=== PATIENT | female | born 1975 | race Caucasian/White ===

== ENCOUNTER 2019-09-27 01:13 | Outpatient (CLI) | payer OTHER, SELFPAY ==
[2019-09-27 20:03] LABS: SARS-CoV-2 RNA PCR Negative
== END 2019-09-27 01:14 | disposition home or self-care (01) ==
LOC: ANHCOVIDDT 01:15
PROVIDERS: PCP Emergency Medicine; Visit Provider Obstetrics & Gynecology
DX: Z01.818 Encounter for other preprocedural examination (principal); Z11.59 Encounter for screening for other viral diseases
CPT/HCPCS: 87635; C9803; U0003

== ENCOUNTER 2019-09-29 02:25 | Day surgery (SDC) | payer OTHER, SELFPAY ==
[2019-09-23 10:12] VITALS: BMI 39.0
--- NOTE | 2019-09-28 13:13 | WPDANESEPPF ---
Anes - Initial Pre Proc Eval Procedure: Operation Date: 09/29/19 07:30 Proposed Procedures p Hysteroscopy With Endometrial Ablation - Emilio Denise MD Date/Time: 09/28/19 13:13 Surgeon: Emilio Denise MD Pre Op Diagnosis: Heavy Bleeding, Menorrhagia Patient Data Age: 43 Gender: F Height: 5 ft Weight: 90.72 kg Allergies Allergy/AdvReac Type Severity Reaction Status Date / Time No Known Allergies Allergy Verified 09/23/19 10:12 Home Medications Medication Instructions Recorded Confirmed Type No Home Medications 09/23/19 09/23/19 History Patient hx anesthesia problems: none Family hx anesthesia problems: none PMFSH Past Medical History Medical History (Updated 09/28/19 @ 13:11 by Daniel Velazquez MD) Anxiety Morbid obesity Family History Family History (Updated 12/30/18 @ 14:10 by DOCTOR UNKNOWN) Father Cerebrovascular accident Mother Cerebrovascular accident Social History Social History Smoking packs per day: 7 Smoking cigarettes per day: 140.0 Years smoked: 25 Smoking pack-years: 175.00 Smoking status: Current some day smoker Tobacco type: cigarettes Alcohol intake: current Spiritual care concerns: No Anes - Eval Final PreProcedure Day of Procedure 09/28/19 13:13 Patient weight: morbidly obese Heart: regular rate and rhythm Lungs: clear to auscultation Airway: Mallampati scale class II Neurological: alert and oriented Last oral intake: >/= 8 hours ASA classification: III Emergent: no Anesthetic plan: proceed Anesthesia type and monitoring: general GIVS and standard monitoring Informed Consent: The patient's anesthetic plan and its attendant risks and benefits were discussed with the patient/family/POA. Questions were solicited and answers provided to the satisfaction of the patient/family/POA.
[2019-09-29] VITALS (7 sets, daily range): BP systolic 78–141; BP diastolic 51–92; PULSE 58–88; RESP 16–20; TEMP 37.7; O2SAT 91–99
[2019-09-29] MEDS: LACTATED RINGERS 1,000 ML 30 ML IV CONT (07:15)
--- NOTE | 2019-09-29 07:28 | WPDHPUPDATE1 ---
History and Physical Update Update Date/Time: 09/29/19 07:28 History and Physical has been reviewed, including an updated exam of the patient. There are NO changes in the patient's condition. Risks, benefits, and alternatives have been discussed and questions answered. Patient agrees to proceed with procedure.
[2019-09-29] MEDS: ACETAMINOPHEN 500 MG TABLET 1000 MG PO (07:30)
[2019-09-29] MEDS: KETOROLAC 30 MG/ML VIAL (*BKC) 15 MG IV PUSH (07:57)
--- NOTE | 2019-09-29 08:00 | P.OP_ITS ---
Procedure Note - Detailed Date of procedure: 09/29/19 Pre-op diagnosis: Heavy Bleeding, Menorrhagia Post-op diagnosis: same Procedure performed: Hysteroscopy D&C, endometrial ablation Description of procedure: The patient was taken the operating room. She has prepped and draped in the dorsal lithotomy position. Speculum was placed the vagina. The cervix grasped with a tenaculum. The cervix was injected at 3 and 9:00 a.m. with 1% lidocaine. The hysteroscope was inserted the intrauterine cavity through the cervix. The above findings were noted. The hysteroscope and uterine sound were used to calculate endometrial cavity length. The endometrial cavity length was entered into the device hand piece. The endometrial cavity was curettaged thoroughly with a medium-size curette. All surfaces were curettaged. The sample was sent to pathology. The device was placed in the intrauterine cavity and the array was expanded. The balloon cuff was inflated. The power and safety checks were initiated. Never completed the array was c ollapsed and the balloon cuff was collapsed. The device was withdrawn. The hysteroscope was inserted back into the intrauterine cavity and well desiccated endometrial cavity was observed. The speculum was removed. The tenaculum was removed. The patient tolerated procedure well. She is take covering stable condition. Anesthesia: MAC Surgeon: Emilio Denise MD Estimated blood loss (mL): 15 Drains: No Packing: No Pathology: yes Complications: No immediate complications Condition: stable Disposition: PACU Findings: Normal appearing vulva vagina and cervix., normal-appearing intrauterine cavity.
--- NOTE | 2019-09-29 08:50 | SUR.PHASEII ---
09/29/19 0841- Patient's blood pressure dropped to 78/51. Reports feeling dizzy. HOB lowered. IVF wide open. B/P improved within minutes. Oxygen applied at 2L per nasal cannula.
--- NOTE | 2019-09-29 09:01 | SUR.PHASEII ---
0900- patient looking much improved. more awake. skin pink, warm and dry. b/p stable. hob elevated. ivf continue. will continue to monitor.
--- NOTE | 2019-09-29 09:28 | SUR.PHASEII ---
0925 pt doing better, more clearer neurological, bp stable, pt on room air
== END 2019-09-29 09:55 | disposition home or self-care (01) ==
PROVIDERS: PCP Emergency Medicine; Visit Provider Obstetrics & Gynecology
PROC: 0U5B8ZZ Destruction of Endometrium, Via Natural or Artificial Opening Endoscopic (ICD-10-PCS; CPT 58563; principal; 2019-09-29 07:30)
DX: N92.0 Excessive and frequent menstruation with regular cycle (principal); E66.01 Morbid (severe) obesity due to excess calories; Z68.39 Body mass index [BMI] 39.0-39.9, adult; F17.210 Nicotine dependence, cigarettes, uncomplicated
CPT/HCPCS: 58563; A9270; J1100; J1885; J2250; J2405; J2704; J3010; J7030; J7120

== ENCOUNTER 2019-09-29 14:34 | Emergency (ER) | payer OTHER, SELFPAY ==
--- NOTE | ~2019-09-29 | XR_ITS ---
EXAMINATION: XR chest 1V portable DATE: 09/29/2019 14:59 INDICATION: Hemoptysis. TECHNIQUE: A single frontal view of the chest was obtained on 2 radiographs. COMPARISON: CT abdomen and pelvis 09/26/2015 FINDINGS: The chest demonstrates clear lungs without pneumonia, pleural effusion, or pneumothorax. Th e heart size is normal. IMPRESSION: 1. No acute cardiopulmonary disease. Reviewed, dictated and finalized at location A.
[2019-09-29 14:38] VITALS: BP 147/86; PULSE 97; RESP 18; TEMP 36.4; O2SAT 99
[2019-09-29 14:59] LABS: Basophils Percent Auto 0.3 % (0.2-1.2); Eosinophils Percent Auto 0.1 % (0-4.4); Hematocrit 40.5 % (37.0-47.0); Hemoglobin 13.3 g/dL (12.0-15.0); Immature Granulocyte Absolute 0.04 K/mm3 (0.00-0.031); Immature Granulocyte Percent A 0.4 % (0-0.5); Lymphocytes Percent Auto 11.5 % (18.3-44.2); Mean Corpuscular HGB Conc 32.8 g/dl (32-36); Mean Corpuscular Hemoglobin 27.5 pg (26-34); Mean Corpuscular Volume 83.7 fl (80-100); Mean Platelet Volume 11.4 fl (7.4-10.4); Monocytes Absolute Auto 0.2 K/mm3 (0.1-0.6); Monocytes Percent Auto 1.4 % (2.6-8.5); Neutrophils Percent Auto 86.3 % (45.5-73.1); Platelet Count Result 311 k/mm3 (150-375); Red Blood Count 4.84 M/mm3 (4.2-5.4); Red Cell Distribution Width 14.6 % (11.5-14.5); White Blood Count 10.4 K/mm3 (4.5-10.0)
[2019-09-29 15:28] LABS: Alanine Aminotransferase 30 U/L (4-35); Albumin Level 4.5 g/dL (3.5-5.1); Alkaline Phosphatase 61 U/L (38-126); Aspartate Amino Transferase 26 U/L (14-36); Bilirubin,Total 0.4 mg/dL (0.2-1.3); Blood Urea Nitrogen 16 mg/dL (7-17); Calcium 8.9 mg/dL (8.4-10.2); Carbon Dioxide 23 mmol/L (22-30); Chloride 103 mmol/L (98-107); Estimated CRCL calculation 103 ml/min; Estimated Glomerular Filt Rate > 60; Glucose 136 mg/dL (65-105); Potassium 4.6 mmol/L (3.4-5.0); Sodium 138 mmol/L (137-145)
[2019-09-29] MEDS: SODIUM CHLORIDE 0.9% IV 1,000 ML 999 ML IV CONT (15:41)
--- NOTE | 2019-09-29 15:41 | ED.GENADULT ---
HPI - General Adult General Chief complaint: Unspecified Stated complaint: coughing up blood post surgery this morning Time Seen by Provider: 09/29/19 15:08 Source: patient Mode of arrival: ambulatory Limitations: no limitations History of Present Illness HPI narrative: This is a 43-year-old female that presents the emergency department for hematemesis this morning. Reports she had an uterine ablation this morning. Reports she got home and slept for an hour. Reports when she woke up she vomited and saw bright red blood in it. Reports since she had a couple more episodes of vomiting small amounts of bright red blood. Denies fever, chest pain, shortness of breath, or abdominal pain. Related Data Home Medications Medication Instructions Recorded Confirmed No Home Medications 09/29/19 09/29/19 Allergies Allergy/AdvReac Type Severity Reaction Status Date / Time No Known Allergies Allergy Verified 09/29/19 08:02 Review of Systems Review of Systems: Narrative: CONSTITUTIONAL: Denies fever CARDIOVASCULAR: Denies chest pain RESPIRATORY: Denies dyspnea. GASTROINTESTINAL: Reports nausea and vomiting. Denies abdominal pain All systems reviewed & are unremarkable except as noted in HPI and below [facility] Past Medical History Medical History (Updated 09/29/19 @ 18:09 by Sybil Gordon PA-C) Anxiety Morbid obesity Family History Family History (Updated 12/30/18 @ 14:10 by DOCTOR UNKNOWN) Father Cerebrovascular accident Mother Cerebrovascular accident Social History Social History Smoking packs per day: 7 Smoking cigarettes per day: 140.0 Years smoked: 25 Smoking pack-years: 175.00 Smoking status: Current some day smoker Tobacco type: cigarettes Alcohol intake: current Spiritual care concerns: No Exam Narrative: Exam Narrative: GENERAL: Well-appearing, obese, and in no acute distress. HEAD: Normocephalic, atraumatic. EYES: EOMI. ENT: Mucous membranes moist. Oropharynx without tonsillar hypertrophy exudate or other lesions. NECK: Supple. No adenopathy or masses. CHEST: Clear to auscultation. No respiratory distress. No wheezes rales or rhonchi HEART: Regular rate and rhythm. No murmur heard. Normal peripheral pulses. ABDOMEN: Soft, nontender, nondistended, normal active bowel sounds. EXTREMITIES: Normal range of motion. No edema. SKIN: Warm, dry, no rash. NEURO: No focal deficits. Alert and oriented x3. PSYCH: Normal mood and affect Course Consultations Consultation #1: Spoke with Dr. Loan ALEXIS about patient and workup. Patient does report history of peptic ulcer disease. Will be restarted on her Pepcid and will follow-up in clinic. Date: 09/29/19 Time: 18:07 Vital Signs Vital signs: Vital Signs Temperature 97.6 F 09/29/19 14:38 Pulse Rate 97 09/29/19 14:38 Respiratory Rate 18 09/29/19 14:38 Blood Pressure 147/86 H 09/29/19 14:38 Pulse Oximetry 99 09/29/19 14:38 Temperature 97.6 F 09/29/19 14:38 Pulse Rate 78 09/29/19 15:43 Respiratory Rate 09/29/19 15:43 Blood Pressure 137/70 09/29/19 15:43 Pulse Oximetry 99 09/29/19 15:43 Medical Decision Making MDM Narrative Medical decision making narrative: Patient presents to the emergency department for hematemesis this morning. Had a uterine ablation this morning. Reports she was feeling nauseous after arriving home due to the anesthesia. Vomited and saw bright red blood in it. Has not had any hematemesis since in the ED. Her vitals are stable. CBC and metabolic panel without acute changes. Chest x-ray without acute findings. Spoke with Dr. Loan ALEXIS about patient and workup. Patient does report history of peptic ulcer disease. Will be restarted on her Pepcid and will follow-up in clinic. Patient is stable and felt appropriate further outpatient evaluation. She was given warnings to return to the ER Medical Records Medical records reviewed: Yes I reviewed the kris
[2019-09-29] MEDS: PANTOPRAZOLE SODIUM IV 40 MG VIAL IV PUSH (15:42)
[2019-09-29 15:43] VITALS: BP 137/70; PULSE 78; RESP 20; O2SAT 99
[2019-09-29 16:08] LABS: INR 0.9; Partial Thromboplastin Time 26.9 SECONDS (22.3-36.8); Prothrombin Time 12.2 Seconds (11.1-14.7)
[2019-09-29 18:20] VITALS: BP 132/68; PULSE 78; RESP 18; O2SAT 99
== END 2019-09-29 18:22 | disposition home or self-care (01) ==
PROVIDERS: Physician Assistant; Emergency Provider Family Medicine; PCP Emergency Medicine
DX: K92.0 Hematemesis (principal); F17.210 Nicotine dependence, cigarettes, uncomplicated; E66.01 Morbid (severe) obesity due to excess calories; Z68.39 Body mass index [BMI] 39.0-39.9, adult
CPT/HCPCS: 36415; 71045; 80053; 85025; 85380; 85610; 85730; 96361; 96374; 99284; A9270; C9113; J1100; J1885; J2250; J2405; J2704; J3010; J7030; J7120

== ENCOUNTER 2019-10-16 02:25 | Outpatient (CLI) | payer OTHER, SELFPAY ==
[2019-10-18 01:35] LABS: SARS-CoV-2 RNA PCR Negative
== END 2019-10-16 02:26 | disposition home or self-care (01) ==
LOC: ANHCOVIDDT 02:25
PROVIDERS: PCP Emergency Medicine; Visit Provider Internal Medicine Gastroenterology
DX: Z01.812 Encounter for preprocedural laboratory examination (principal); Z11.59 Encounter for screening for other viral diseases
CPT/HCPCS: 87635; C9803; U0003

== ENCOUNTER 2019-10-19 00:57 | Day surgery (SDC) | payer OTHER, SELFPAY ==
[2019-10-15 12:42] VITALS: BMI 39.6
--- NOTE | 2019-10-19 10:05 | WPDANESEPPF ---
Anes - Initial Pre Proc Eval Procedure: Operation Date: 10/19/19 11:15 Proposed Procedures p Esophagogastroduodenoscopy - Shailesh Cates MD Date/Time: 10/19/19 10:05 Surgeon: Shailesh Cates MD Pre Op Diagnosis: vomiting Patient Data Age: 43 Gender: F Height: 1.52 m Weight: 92 kg Allergies Allergy/AdvReac Type Severity Reaction Status Date / Time No Known Allergies Allergy Verified 09/30/19 13:44 Home Medications Medication Instructions Recorded Confirmed Type trazodone 50 mg PO DAILY 10/15/19 10/15/19 History Patient hx anesthesia problems: none Family hx anesthesia problems: none PMFSH Past Medical History Medical History (Updated 10/18/19 @ 10:14 by Esteban Ramirez DO) Anxiety Cough Hemoptysis Morbid obesity PTSD (post-traumatic stress disorder) Tobacco abuse Vomiting Family History Family History (Updated 12/30/18 @ 14:10 by DOCTOR UNKNOWN) Father Cerebrovascular accident Mother Cerebrovascular accident Social History Social History (Updated 10/19/19 @ 10:05 by Esteban Ramirez DO) Smoking packs per day: 1 Smoking cigarettes per day: 20.0 Years smoked: 25 Smoking pack-years: 25.00 Smoking status: Current some day smoker Tobacco type: cigarettes Alcohol intake: current Spiritual care concerns: No Anes - Eval Final PreProcedure Day of Procedure 10/19/19 10:05 Patient weight: obese Heart: regular rate and rhythm Lungs: clear to auscultation and normal air movement Airway: Mallampati scale class III Neurological: alert and oriented Last oral intake: >/= 8 hours ASA classification: III Emergent: no Anesthetic plan: proceed Anesthesia type and monitoring: general GIVS and standard monitoring Informed Consent: The patient's anesthetic plan and its attendant risks and benefits were discussed with the patient/family/POA. Questions were solicited and answers provided to the satisfaction of the patient/family/POA.
[2019-10-19 10:13] VITALS: BP 132/71; PULSE 62; RESP 14; TEMP 36; O2SAT 98
[2019-10-19] MEDS: LACTATED RINGERS 1,000 ML 150 ML IV CONT (10:26)
--- NOTE | 2019-10-19 11:24 | WPDHPUPDATE1 ---
History and Physical Update Update Date/Time: 10/19/19 11:24 History and Physical has been reviewed, including an updated exam of the patient. There are NO changes in the patient's condition. Risks, benefits, and alternatives have been discussed and questions answered. Patient agrees to proceed with procedure.
[2019-10-19 11:36] VITALS: BP 112/73; PULSE 61; RESP 18; O2SAT 99
[2019-10-19 11:46] VITALS: BP 107/72; PULSE 72; RESP 17; O2SAT 99
[2019-10-19 11:56] VITALS: BP 108/72; PULSE 67; RESP 17; O2SAT 99
== END 2019-10-19 11:52 | disposition home or self-care (01) ==
PROVIDERS: PCP Emergency Medicine; Visit Provider Internal Medicine Gastroenterology
PROC: 0DJ08ZZ Inspection of Upper Intestinal Tract, Via Natural or Artificial Opening Endoscopic (ICD-10-PCS; CPT 43235; principal; 2019-10-19 11:15)
DX: R04.2 Hemoptysis (principal); R11.10 Vomiting, unspecified; F43.10 Post-traumatic stress disorder, unspecified; F41.9 Anxiety disorder, unspecified; F17.210 Nicotine dependence, cigarettes, uncomplicated; E66.01 Morbid (severe) obesity due to excess calories; Z68.41 Body mass index [BMI] 40.0-44.9, adult
CPT/HCPCS: 43235; J2704; J7120

== ENCOUNTER 2019-11-09 15:43 | Outpatient (CLI) | payer OTHER, SELFPAY ==
--- NOTE | ~2019-11-09 | CT_ITS ---
EXAMINATION: CT chest wo con DATE: 11/09/2019 16:07 INDICATION: Hemoptysis TECHNIQUE: Computed tomography (CT) of the chest was performed without intravenous contrast. The dose -length product (DLP) was 494.73 mGy-cm. Automated exposure control and iterative reconstruction tech nique were employed. COMPARISON: None FINDINGS: The lungs are free of acute opacities. There is no pleural effusion or pneumothorax. No pat hologically enlarged thoracic lymph nodes are identified. The heart size is normal. The gallbladder i s surgically absent. Punctate bilateral nephrolithiasis is noted. IMPRESSION: 1. No CT correlate for the patient's symptoms. No acute cardiopulmonary abnormality. Reviewed, dictated and finalized at location A. IMPRESSION: 1. No CT correlate for the patient's symptoms. No acute cardiopulmonary abnorma lity.
== END 2019-11-09 15:44 | disposition home or self-care (01) ==
PROVIDERS: PCP Emergency Medicine; Visit Provider Internal Medicine Critical Care Medicine
DX: R04.2 Hemoptysis (principal)
CPT/HCPCS: 71250

== ENCOUNTER 2019-11-25 13:21 | Outpatient (CLI) | payer OTHER, SELFPAY ==
--- NOTE | 2019-11-30 23:53 | WPDPFTINT ---
PFT Interpretation PFT Interpretation: DOS: 11/25/2019 REQUESTING: Dr Cabello REASON FOR TESTING: Shortness of breath PULMONARY FUNCTION TESTS results are reliable. Spirometry: FEV1 101%, FVC 103%, and FEV1% 76%, all normal. ZSC95-57% is 71% and increases 20% after bronchodilator. Lung volumes: TLC 115%, normal RV increased 127% consistent with mild air trapping. Normal airway resistance. Diffusion: DLCO 69%, mildly decreased. Flow volume loop: Normal. IMPRESSION: Normal spirometry, decreased small airways flows, mild air trapping which is consistent with an obstructive process, and mild diffusion defect. There is a non-statistically significant change in small airways flows with bronchodilator. Faye Sood MD
== END 2019-11-25 13:22 | disposition home or self-care (01) ==
LOC: ANHPFT 13:23
PROVIDERS: PCP Emergency Medicine; Visit Provider Internal Medicine Critical Care Medicine
DX: R06.00 Dyspnea, unspecified (principal)
CPT/HCPCS: 94060; 94726; 94729

== ENCOUNTER 2019-12-04 01:02 | Outpatient (CLI) | payer OTHER, SELFPAY ==
[2019-12-04 18:03] LABS: SARS-CoV-2 RNA PCR Negative
== END 2019-12-04 01:03 | disposition home or self-care (01) ==
LOC: ANHCOVIDDT 01:06
PROVIDERS: PCP Emergency Medicine; Visit Provider Internal Medicine Critical Care Medicine
DX: Z01.812 Encounter for preprocedural laboratory examination (principal); Z20.828 Contact with and (suspected) exposure to other viral communicable diseases
CPT/HCPCS: 87635; C9803; U0003

== ENCOUNTER 2019-12-07 01:13 | Day surgery (SDC) | payer OTHER, SELFPAY ==
[2019-10-29 13:19] VITALS: BMI 39.1
[2019-11-25 11:28] VITALS: BMI 39.1
--- NOTE | 2019-12-06 18:08 | WPDANESEPP ---
Anes - Eval Pre Procedure Procedure: Operation Date: 12/07/19 13:00 Proposed Procedures p Flexible Bronchoscopy - Connie Cabello MD Date/Time: 12/06/19 18:08 Pre Op Diagnosis: Hemoptysis Patient Data Age: 43 Gender: F Height: 5 ft Weight: 90.9 kg Allergies Allergy/AdvReac Type Severity Reaction Status Date / Time No Known Allergies Allergy Verified 11/25/19 11:27 Home Medications Medication Instructions Recorded Confirmed Type budesonide-formoterol HFA 160 2 puff INHALATION Q12H 30 Days 10/27/19 11/25/19 Rx mcg-4.5 mcg/actuation aerosol #10.2 gm inhaler inhalational spacing device #1 each 10/27/19 10/27/19 Rx Patient hx anesthesia problems: none Family hx anesthesia problems: none PMFSH Past Medical History Medical History (Updated 12/06/19 @ 18:08 by Marquis Singh CRNA) Anxiety delivery delivered Cough Hemoptysis Morbid obesity PTSD (post-traumatic stress disorder) Tobacco abuse Vomiting Family History Family History Father Cerebrovascular accident Mother Cerebrovascular accident Social History Social History Smoking packs per day: 1 Smoking cigarettes per day: 20.0 Years smoked: 25 Smoking pack-years: 25.00 Smoking status: Current some day smoker Tobacco type: cigarettes Alcohol intake: current Substance use: never Spiritual care concerns: No Exam Day of Procedure 12/06/19 18:08 Patient weight: obese Neurological: alert and oriented
[2019-12-07] VITALS (8 sets, daily range): BP systolic 104–135; BP diastolic 55–92; PULSE 72–79; RESP 17–32; TEMP 36.1–36.4; O2SAT 98–100
--- NOTE | 2019-12-07 10:54 | ECG_ITS ---
Measurements Intervals [place] Rate: 60 P: 41 [place]: 192 QRS: 6 QRSD: 96 T: 43 QT: 416 QTc: 417 Interpretive Statements SINUS RHYTHM INCOMPLETE RIGHT BUNDLE BRANCH BLOCK BORDERLINE ECG Electronically Signed On 12-07-2019 11:04:00 CDT by Slava Gonzales D.O.
--- NOTE | 2019-12-07 11:12 | PM.CNPUL ---
Assessment and Plan Assessment and plan (1) Hemoptysis: Code(s): R04.2 - Hemoptysis Status: Acute Assessment and Plan: Diagnostic bronchoscopy today History of Present Illness History of Present Illness Consult date: 12/07/19 Narrative: 43 y/o smoker here for diagnostic bronchscopy because of ongoing mild hemoptysis. She has no infectious symptoms and no GI symptoms or epistaxis. She complains of cogh productive of sputum and some brown pigment but no blood. Review of Systems Review of Systems: All systems reviewed & are unremarkable except as noted in HPI and below PMFSH Past Medical History Medical History Anxiety delivery delivered Cough Hemoptysis Morbid obesity PTSD (post-traumatic stress disorder) Tobacco abuse Vomiting Family History Family History Father Cerebrovascular accident Mother Cerebrovascular accident Social History Social History Smoking packs per day: 1 Smoking cigarettes per day: 20.0 Years smoked: 25 Smoking pack-years: 25.00 Smoking status: Current some day smoker Tobacco type: cigarettes Alcohol intake: current Substance use: never Living arrangements: with family Spiritual care concerns: No Meds Home Medications and Allergies Allergies Allergy/AdvReac Type Severity Reaction Status Date / Time No Known Allergies Allergy Verified 11/25/19 11:27 Vital Signs Vital Signs - 24 hr 12/07/19 11:11 Temperature 36.1 C L Pulse Rate 77 Respiratory Rate 18 Blood Pressure 130/83 Pulse Oximetry 98 Exam Const: General: no acute distress Neck: Neck: supple and no JVD Resp: Auscultation: wheezes and diminished lung sounds Cardio: Rate: regular rate Rhythm: regular rhythm Heart sounds: no murmurs GI: GI Palp: Yes Soft to palpation Skin: General skin exam: normal color and no rashes or lesions noted Neuro: Speech: normal speech Extrem: General: normal to inspection Psych: Mental Status: mental status grossly normal Affect: normal affect
[2019-12-07] MEDS: LACTATED RINGERS 1,000 ML 150 ML IV CONT (11:20)
--- NOTE | 2019-12-07 11:23 | WPDANESEPPF ---
Anes - Initial Pre Proc Eval Procedure: Operation Date: 12/07/19 13:00 Proposed Procedures p Flexible Bronchoscopy - Connie Cabello MD Date/Time: 12/07/19 11:23 Surgeon: Connie Cabello MD Pre Op Diagnosis: Hemoptysis Patient Data Age: 43 Gender: F Height: 5 ft Weight: 97 kg Last Vital Signs Temp 36.1 C L 12/07/19 11:11 Pulse 77 12/07/19 11:11 Resp 18 12/07/19 11:11 BP 130/83 12/07/19 11:11 Pulse Ox 98 12/07/19 11:11 Allergies Allergy/AdvReac Type Severity Reaction Status Date / Time No Known Allergies Allergy Verified 11/25/19 11:27 Home Medications Medication Instructions Recorded Confirmed Type budesonide-formoterol HFA 160 2 puff INHALATION Q12H 30 Days 10/27/19 11/25/19 Rx mcg-4.5 mcg/actuation aerosol #10.2 gm inhaler inhalational spacing device #1 each 10/27/19 10/27/19 Rx Patient hx anesthesia problems: none Family hx anesthesia problems: none PMFSH Past Medical History Medical History Anxiety delivery delivered Cough Hemoptysis Morbid obesity PTSD (post-traumatic stress disorder) Tobacco abuse Vomiting Family History Family History Father Cerebrovascular accident Mother Cerebrovascular accident Social History Social History Smoking packs per day: 1 Smoking cigarettes per day: 20.0 Years smoked: 25 Smoking pack-years: 25.00 Smoking status: Current some day smoker Tobacco type: cigarettes Alcohol intake: current Substance use: never Living arrangements: with family Spiritual care concerns: No Anes - Eval Final PreProcedure Day of Procedure 12/07/19 11:23 Patient weight: morbidly obese Heart: regular rate and rhythm Lungs: decreased breath sounds Airway: Mallampati scale class II Neurological: alert and oriented Last oral intake: >/= 8 hours ASA classification: III Emergent: no Anesthetic plan: proceed Anesthesia type and monitoring: general ETT and standard monitoring Informed Consent: The patient's anesthetic plan and its attendant risks and benefits were discussed with the patient/family/POA. Questions were solicited and answers provided to the satisfaction of the patient/family/POA.
[2019-12-07] MEDS: KETOROLAC 30 MG/ML VIAL (*BKC) IV PUSH (14:02)
[2019-12-07 14:28] LABS: Appearance Bronchial Fluid Hazy; Source Bronchial Fluid Bronchial Lavage
[2019-12-07 14:29] LABS: Color Bronchial Fluid Colorless; Eosinophils Bronchial Fluid 2 %; Lymphocytes Bronchial Fluid 59 %; Macrophages Bronchial Fluid 32; Neutrophils Bronchial Fluid 7 %
--- NOTE | 2019-12-07 14:29 | SUR.PHASEII ---
1345 PT RECEIVED FROM PROCEDURE ROOM. AWAKE AND ALERT. SLIGHTLY DROWSY. VERY ANXIOUS AND RESTLESS. C/O BURNING SENSATION IN HER THROAT AND THEN MINUTES LATER STARTS C/O FRONTAL HEADACHE. DR ESQUIVEL FROM ANESTHESIA AWARE. TORADAL ORDER RECEIVED.
--- NOTE | 2019-12-07 15:12 | SUR.PHASEII ---
1510 DISCHARGED HOME WITH A MACHINIST/FAMILY. DENIES HEADACHE. NO RESP DISTRESS.
== END 2019-12-07 15:10 | disposition home or self-care (01) ==
PROVIDERS: PCP Emergency Medicine; Visit Provider Internal Medicine Critical Care Medicine
PROC: 0BJ08ZZ Inspection of Tracheobronchial Tree, Via Natural or Artificial Opening Endoscopic (ICD-10-PCS; CPT 31622; principal; 2019-12-07 13:00)
DX: R04.2 Hemoptysis (principal); F17.210 Nicotine dependence, cigarettes, uncomplicated; F43.10 Post-traumatic stress disorder, unspecified; F41.9 Anxiety disorder, unspecified
CPT/HCPCS: 31624; 36415; 85999; 87070; 87205; 87486; 87581; 93005; J0330; J1100; J1885; J2405; J2704; J7040; J7120

== ENCOUNTER 2019-12-08 14:30 | Outpatient (CLI) | payer OTHER, SELFPAY ==
--- NOTE | ~2019-12-08 | MM_ITS ---
EXAMINATION: MM screening ila BI w karthik HISTORY: Screening mammogram TECHNIQUE: Craniocaudal and mediolateral oblique 3-D tomosynthesis images were obtained and synthetic 2-D images were generated. CAD analysis was submitted and interpreted. COMPARISON: No prior mammogram is available for comparison at this institution. BREAST PARENCHYMAL COMPOSITION: The breasts are almost entirely fatty. FINDINGS: There is no evidence of suspicious mass, calcification, or architectural distortion to sugg est malignancy in either breast. There has been no suspicious interval change. IMPRESSION: 1. No mammographic evidence of malignancy. 2. Recommend routine screening mammography in one year. BI-RADS Category 1: Negative Reviewed, dictated and finalized at location A.
== END 2019-12-08 14:31 | disposition home or self-care (01) ==
LOC: ANHIMG 14:33
PROVIDERS: PCP Emergency Medicine; Visit Provider Emergency Medicine
DX: Z12.31 Encounter for screening mammogram for malignant neoplasm of breast (principal)
CPT/HCPCS: 77063; 77067

== ENCOUNTER 2019-12-23 17:22 | Outpatient (CLI) | payer OTHER, SELFPAY ==
--- NOTE | ~2019-12-23 | CT_ITS ---
EXAMINATION: CT sinus wo con DATE: 12/23/2019 17:48 INDICATION: Nasal bone fracture TECHNIQUE: Computed tomography (CT) of the paranasal sinuses was performed without intravenous contra st. Coronal reconstructions were obtained. Automated exposure control and iterative reconstruction te donnanique were employed. The dose-length product was 274.44 mGy-cm. COMPARISON: 06/22/2017 and 02/24/2014 FINDINGS: Again seen are chronic bilateral nasal bone fractures with no significant change in alignment since t he earlier studies with mild buckling and leftward deviation of the left nasal bone. There is also un changed leftward bowing of the anterior nasal septum which conforms to the contours of the turbinates , unclear whether this is developmental or sequela of prior trauma. Mild mucosal thickening in the ri ght maxillary sinus. Remainder of the paranasal sinuses are clear. Bilateral ostiomeatal units are wi milton patent. Orbits are normal. Dental disease with dental caries and periapical lucencies at the pos terior most remaining bilateral maxillary molars. IMPRESSION: 1. No significant interval change in chronic fracture deformities of the left and right nasal bones. 2. Unchanged leftward bowing of the nasal septum which could be either developmental or sequela of ol d trauma. 3. Dental caries with periapical erosions at the bilateral posterior most molars. Reviewed, dictated and finalized at location A. IMPRESSION: 1. No significant interval change in chronic fracture deformities of the left a nd right nasal bones. 2. Unchanged leftward bowing of the nasal septum which could be either developm ental or sequela of old trauma. 3. Dental caries with periapical erosions at the bilateral posterior most molar s.
== END 2019-12-23 17:23 | disposition home or self-care (01) ==
PROVIDERS: PCP Emergency Medicine; Visit Provider Otolaryngology
DX: S02.2XXA Fracture of nasal bones, initial encounter for closed fracture (principal); X58.XXXA Exposure to other specified factors, initial encounter
CPT/HCPCS: 70486